=== PATIENT | female | born 1975 | race Caucasian/White ===

== ENCOUNTER 2021-03-05 13:56 | Emergency (ER) | payer OTHER, SELFPAY ==
[2021-03-05 14:14] VITALS: BP 145/95; PULSE 120; RESP 20; TEMP 36.9; O2SAT 97; BMI 30.9
[2021-03-05 14:28] VITALS: BP 149/97; PULSE 110; RESP 16; TEMP 36.6; O2SAT 98
[2021-03-05 14:29] VITALS: PULSE 110
--- NOTE | 2021-03-05 14:33 | XR_ITS ---
WS: [id number] LEFT ANKLE: 2 VIEW(S) TECHNIQUE: AP and lateral. HISTORY: injury COMPARISON: None available. Normal alignment at the ankle. There is a nondisplaced fracture involving the proximal fifth metatars al and also within the distal second metatarsal diaphysis. Additional fracture suspected involving th e third and fourth metatarsals which will be better seen on a follow-up foot radiograph. No joint effusion or widening of the ankle mortise. Small calcaneal spur. No soft tissue abnormality. XR/XR ankle LT 2V [id number] IMPRESSION: 1. No ankle fracture. 2. Multiple fractures involving the metatarsals. Please refer to the foot radi ograph report from on the same day.
--- NOTE | 2021-03-05 14:33 | XR_ITS ---
WS: [id number] LEFT FOOT: 3 VIEW(S) TECHNIQUE: AP, oblique and lateral. HISTORY: injury COMPARISON: None available. Multiple fractures in the LEFT foot. There is a transverse fracture through the proximal fifth metata rsal. Additional fractures in the proximal third and fourth metatarsals. Fourth metatarsal fracture e xtends to the diaphysis by 18 mm. There is an additional nondisplaced fracture involving the distal s econd metatarsal. Tarsal metatarsal alignment remains intact. This could be further evaluated on follow-up radiographs. Mild soft tissue edema. XR/XR foot LT min 3V* [id number] IMPRESSION: 1. Second through fifth metatarsal fractures as described above. 2. No Lisfranc injury appreciated.
--- NOTE | 2021-03-05 14:42 | W.ED.EXTPRO ---
HPI - Extremity Problem General: Chief complaint: Extremity Injury, Lower Stated complaint: L FOOT INJURY: SKID DROPPED ON FOOT/WC Time Seen by Provider: 03/05/21 14:27 History of Present Illness: HPI Narrative: Patient is a 45-year-old female who is here with complaints of left ankle and foot pain. Around half prior to arrival she had a trailer dropped on her foot. While they were trying to extricate from her it fell on her again. She has pain throughout the entire ankle and foot. Does not take any medicines prior to arrival. No previous history of surgery or injury to the area denies fevers chills chest pain nausea vomiting diarrhea altered mental status syncope shortness of breath or headache MD Complaint: extremity pain Onset (ago): hour(s) (1) Pain Consistency: constant Location: left and lower extremity (Foot and ankle) Severity scale (1-10): 8 Quality: aching, crushing and constant Radiation: none Relieving factors: cold therapy, immobilization and rest Exacerbating factors: weight bearing and walking Associated symptoms: Reports no associated symptoms Review of Systems General: Reports: 10 or more systems reviewed and unremarkable except in HPI and below Physical Exam Const: COMMON NORMALS: no acute distress, average body habitus and patient oriented x3 HENMT: COMMON NORMALS: normocephalic and atraumatic HEAD & SCALP: normocephalic and atraumatic Eye: COMMON NORMALS: Equal, round and reactive pupils present and EOMs intact bilaterally PUPIL: Yes Equal, round and reactive pupils present Resp: COMMON NORMALS: normal respiratory effort Cardio: COMMON NORMALS: regular rate and regular rhythm RATE: regular rate RHYTHM: regular rhythm Extremity: NARRATIVE EXTREMITY EXAM: Patient has significant bruising and swelling of the left lower extremity from the ankle down. Swelling and bruising on the dorsum of the foot as well as the malleolus. She is able to flex and extend all of her toes. Able to perceive light and sharp sensation all of her toes. Dorsalis pedis pulse of 55 with strong. No obvious deformity or dislocation Neuro: COMMON NORMALS: patient oriented x3, moves all extremities and no focal motor deficits CRANIAL NERVES: Yes CN normal except as noted Psych: COMMON NORMALS: mental status grossly normal Skin: COMMON NORMALS: no rashes or lesions noted GENERAL SKIN EXAM: no rashes or lesions noted Course ED course: Patient has fractures at the diaphysis and base of the second through fifth metatarsals. Have a call into orthopedics for follow-up and management advice. We will also give her [place] for pain control. Patient to follow-up with podiatry on Wednesday. No work. We will place her in a posterior short leg with no weightbearing and crutches. [place] for pain control. Did give instructions on compartment syndrome and when to follow-up. Vital Signs: Vital signs: Vital Signs Temperature 97.9 F 03/05/21 14:28 Pulse Rate 110 H 03/05/21 14:29 Respiratory Rate 16 03/05/21 14:28 Blood Pressure 149/97 03/05/21 14:28 Pulse Oximetry 98 03/05/21 14:28 MDM - Extremity (Nontraumatic) MDM Narrative: Medical decision making narrative: Differential includes fracture, dislocation, sprain Patient is neurovascularly intact. No obvious deformity. We will get plain films to assess for bony injury. Toradol for pain control. Discharge Plan Discharge Patient Disposition: Home Clinical Impression: Metatarsal fracture Qualifiers: Encounter type: initial encounter Metatarsal bone: unspecified metatarsal Fracture type: closed Fracture alignment: displaced Laterality: left Qualified Code(s): S92.302A - Fracture of unspecified metatarsal bone(s), left foot, initial encounter for closed fracture Condition: Stable Prescriptions: New hydrocodone-acetaminophen 5-325 mg tablet 1 tab PO Q6H PRN (Reason: pain) Qty: 14 RF: 0 No Action venlafaxine 75 mg capsule,extended release 24hr 75 mg PO DAILY RF: 0 meloxicam 15 mg tablet 15 mg PO DAILY RF: 0 baclofen 10 mg tablet 10 mg PO BEDTIME RF: 0 hydrochlorothiazide 25 mg tablet 25 mg PO BEDTIME RF: 0 Elderberry 200 mg Capsule 200 mg PO DAILY RF: 0 One-A-Day Women's Complete 18 mg-400 mcg- 25 mcg Tablet 1 tab PO DAILY RF: 0 Discharge Orders: Discharge ED (Routine); Ordered 03/05/21 Ordered By: Jr Sol Referrals: Ashley Ward NP [Primary Care Provider] - Discharge Activity: Use walker/crutches as instructed Patient Instructions: Foot Fracture in Adults (ED), Opioid Safety Activity Restrictions/Additional Instructions: You have an appointment at [address] Patton at [facility] [place]. Keep splint clean and dry. Keep it elevated over the level of your heart. If you have severe pain numbness or tingling in your toes or toes turn blue return to the emergency department. Take medications as prescribed do not take it with alcohol or other depressants. Do not put any weight on the foot. No work until cleared by foot surgeon Coding Level of Care Code ED Associate Professor Of Pathology for Chg Fwd Exam Comprehensive
[2021-03-05] MEDS: ketorolac 60 mg/2 mL INJ IM (15:29)
[2021-03-05] MEDS: HYDROcodone-acetaminophen 5-325 mg Tablet 1 TAB PO (15:33)
[2021-03-05 16:27] VITALS: BP 138/82; PULSE 82; RESP 14; TEMP 36.6
== END 2021-03-05 16:31 | disposition home or self-care (01) ==
PROVIDERS: Emergency Provider Family Medicine; PCP Nurse Practitioner Family
DX: S92.322A Displaced fracture of second metatarsal bone, left foot, initial encounter for closed fracture (principal); S92.332A Displaced fracture of third metatarsal bone, left foot, initial encounter for closed fracture; S92.342A Displaced fracture of fourth metatarsal bone, left foot, initial encounter for closed fracture; S92.352A Displaced fracture of fifth metatarsal bone, left foot, initial encounter for closed fracture; W20.8XXA Other cause of strike by thrown, projected or falling object, initial encounter
CPT/HCPCS: 29515; 73600; 73630; 96372; 99283; E0114; J1885